=== PATIENT | male | born 1955 | race Two or more races ===

== ENCOUNTER → 2023-09-18 | Emergency (ER) | payer OTHER ==
[~2023-09-18] VITALS: Ht 172.7 cm; Wt 90.7 kg
[2023-09-18 14:25] VITALS: TEMP 98.3
[2023-09-18 16:55] LABS: BASOPHILS % (AUTO) 0.3 % (0.0-2.0); CALCIUM, SERUM 9.2 mg/dL (8.5-10.1); CREATININE 0.8 mg/dL (0.6-1.3); EOSINOPHILS % (AUTO) 0.5 % (0.0-6.0); HEMATOCRIT 40 % (39-51); HEMOGLOBIN 13.3 g/dL (13.5-17.5); LYMPHOCYTES # (AUTO) 1.9 K/uL (0.8-4.8); MEAN CORPUSCULAR HEMOGLOBIN 30 PG (26.0-33.0); MEAN CORPUSCULAR HGB CONC 33 g/dl (31.0-36.0); MEAN CORPUSCULAR VOLUME 90 fL (80-96); MONOCYTES # (AUTO) 0.7 K/uL (0.1-1.30); MONOCYTES % (AUTO) 9.9 % (2.0-12.0); NEUTROPHILS # (AUTO) 4.9 K/uL (1.8-8.9); NEUTROPHILS % (AUTO) 64.3 % (43.0-81.0); PLATELET COUNT (AUTO) 297 K/uL (150-450); POTASSIUM 4.1 mmol/L (3.5-5.1); RED BLOOD CELL COUNT(AUTO) 4.51 MIL/uL (4.5-6.0); RED CELL DISTRIBUTION WIDTH 12.2 % (11.5-15.0); WHITE BLOOD COUNT (AUTO) 7.5 K/uL (4.3-11.0)
[2023-09-18 17:05] LABS: LACTIC ACID 0.9 mmol/L (0.4-2.0)
[2023-09-18] MEDS: PIPERACILLIN /TAZOBACTAM 3.375 G in IV D5W 50 ML IV ONE (17:06)
[2023-09-18] MEDS: VANCOMYCIN 1 GM in IV D5W 250 ML IV ONE (17:15)
[2023-09-18 17:19] VITALS: BP 153/86; O2SAT 98
== END | disposition short-term general hospital (02) ==
LOC: ER 14:25
DX: T25.022D Burn of unspecified degree of left foot, subsequent encounter (principal); B96.89 Other specified bacterial agents as the cause of diseases classified elsewhere; E78.00 Pure hypercholesterolemia, unspecified; X11.8XXD Contact with other hot tap-water, subsequent encounter
CPT/HCPCS: 99285; 96365; 93971; 96368; 85025; 80048; 87040 ×2; 83605; 36415; J3370; J2543; J7060; J7030 ×2